=== PATIENT | female | born 1985 | race Two or more races ===

== ENCOUNTER 2018-11-18 15:03 | Emergency (ER) | payer OTHER ==
[~2018-11-18] VITALS: Ht 160 cm; Wt 59.0 kg
[2018-11-18] MEDS ORDERED: PRENATAL + DHA1 EACH PO (15:54)
[2018-11-18] MEDS ORDERED: DIALYVITE 800-1 EACH PO (15:54)
== END 2018-11-18 19:51 | disposition home or self-care (01) ==
LOC: ER 15:03
DX: O20.0 Threatened abortion (principal)

== ENCOUNTER 2018-12-19 20:22 | Inpatient (IN) | payer OTHER ==
[~2018-12-19] VITALS: Ht 160 cm; Wt 59.0 kg
== END 2018-12-30 13:39 | disposition home or self-care (01) | DRG 832 ==
LOC: LDR 20:22 → OB/GYN 12-20 18:34
PROVIDERS: ADMIT Obstetrics & Gynecology
PROC: 4A1HXCZ Monitoring of Products of Conception, Cardiac Rate, External Approach (ICD-10-PCS; 2018-12-19)
PROC: BY4DZZZ Ultrasonography of Second Trimester, Multiple Gestation (ICD-10-PCS; principal; 2018-12-20)
PROC: BW40ZZZ Ultrasonography of Abdomen (ICD-10-PCS; 2018-12-24)
PROC: BU46ZZZ Ultrasonography of Uterus (ICD-10-PCS; 2018-12-24)
DX: O34.32 Maternal care for cervical incompetence, second trimester (principal); O47.02 False labor before 37 completed weeks of gestation, second trimester; O30.002 Twin pregnancy, unspecified number of placenta and unspecified number of amniotic sacs, second trimester; Z34.82 Encounter for supervision of other normal pregnancy, second trimester

== ENCOUNTER → 2018-12-19 | Day surgery (SDC) | payer OTHER ==
[~2018-12-19] MED LIST: DIALYVITE 800-1 EACH PO; PRENATAL + DHA1 EACH PO; PROCARD PO; PROGESTERONE200 MG PO
== END | disposition home or self-care (01) ==
LOC: CIR.AMB 09:40
DX: O34.32 Maternal care for cervical incompetence, second trimester (principal); O30.042 Twin pregnancy, dichorionic/diamniotic, second trimester; Z3A.16 16 weeks gestation of pregnancy

== ENCOUNTER 2019-01-14 14:15 | Outpatient (CLI) | payer OTHER | END 2019-01-14 15:48 | disposition HB | LOC: NST 14:15 | DX: Z34.82 Encounter for supervision of other normal pregnancy, second trimester (principal) ==

== ENCOUNTER 2019-01-30 09:19 | Outpatient (CLI) | payer OTHER | END 2019-01-30 12:10 | disposition home or self-care (01) | LOC: NST 09:19 | DX: Z34.82 Encounter for supervision of other normal pregnancy, second trimester (principal) ==

== ENCOUNTER 2019-02-10 14:07 | Inpatient (IN) | payer OTHER ==
[~2019-02-10] VITALS: Ht 160 cm; Wt 60.3 kg
[~2019-02-10 14:07] MED LIST changes: -PROGESTERONE200 MG PO; +PROGESTERONE200 MG VAG
[2019-02-10] MEDS ORDERED: NIFE60TA3 PO (14:47)
[2019-02-21] MEDS ORDERED: NIFEDIPINE ER60 MG PO (08:10)
[2019-02-21] MEDS ORDERED: AMOX-CLAV 500-1 EACH PO (08:10)
== END 2019-02-21 13:35 | DRG 833 ==
LOC: LDR 14:07 → OB/GYN 02-13 13:17
PROVIDERS: ADMIT Obstetrics & Gynecology Maternal & Fetal Medicine
PROC: 4A0HXFZ Measurement of Products of Conception, Cardiac Rhythm, External Approach (ICD-10-PCS; principal; 2019-02-10)
PROC: BU4CZZZ Ultrasonography of Uterus and Ovaries (ICD-10-PCS; 2019-02-17)
PROC: BY4DZZZ Ultrasonography of Second Trimester, Multiple Gestation (ICD-10-PCS; 2019-02-18)
DX: O34.32 Maternal care for cervical incompetence, second trimester (principal)

== ENCOUNTER 2019-02-26 17:01 | Inpatient (IN) | payer OTHER ==
[~2019-02-26] VITALS: Ht 160 cm; Wt 60.8 kg
[~2019-02-26 17:01] MED LIST changes: +AMOX-CLAV 500-1 EACH PO; +NIFE60TA3 PO; +NIFEDIPINE ER60 MG PO
[2019-02-26] MEDS ORDERED: LAXATIVE SUPPO1 EACH (19:06)
[2019-02-26] MEDS ORDERED: COLACE100 MG PO (19:07)
== END 2019-04-12 15:20 | disposition home or self-care (01) | DRG 831 ==
LOC: SURG-SUITE 17:01 → LDR 17:01 → SURG-SUITE 03-02 11:02
PROVIDERS: ADMIT Obstetrics & Gynecology Maternal & Fetal Medicine
PROC: 4A1HXCZ Monitoring of Products of Conception, Cardiac Rate, External Approach (ICD-10-PCS; principal; 2019-02-26)
PROC: BY4DZZZ Ultrasonography of Second Trimester, Multiple Gestation (ICD-10-PCS; 2019-03-02)
PROC: BY47ZZZ Ultrasonography of Fetal Umbilical Cord (ICD-10-PCS; 2019-03-27)
PROC: BY4DZZZ Ultrasonography of Second Trimester, Multiple Gestation (ICD-10-PCS; 2019-03-27)
DX: O47.03 False labor before 37 completed weeks of gestation, third trimester (principal); O34.32 Maternal care for cervical incompetence, second trimester; O30.002 Twin pregnancy, unspecified number of placenta and unspecified number of amniotic sacs, second trimester; O65.5 Obstructed labor due to abnormality of maternal pelvic organs; Z3A.25 25 weeks gestation of pregnancy

== ENCOUNTER 2019-04-15 15:09 | Outpatient (CLI) | payer OTHER ==
[~2019-04-15 15:09] MED LIST changes: +COLACE100 MG PO; +LAXATIVE SUPPO1 EACH
== END 2019-04-15 17:59 | disposition home or self-care (01) ==
LOC: NST 15:09
DX: Z34.83 Encounter for supervision of other normal pregnancy, third trimester (principal)

== ENCOUNTER 2019-04-18 12:20 | Outpatient (CLI) | payer OTHER | END 2019-04-18 13:18 | disposition home or self-care (01) | LOC: NST 12:20 | DX: Z34.83 Encounter for supervision of other normal pregnancy, third trimester (principal) ==

== ENCOUNTER 2019-04-22 12:51 | Outpatient (CLI) | payer OTHER | END 2019-04-22 13:36 | disposition home or self-care (01) | LOC: NST 12:51 | DX: Z34.83 Encounter for supervision of other normal pregnancy, third trimester (principal) ==

== ENCOUNTER 2019-04-25 11:40 | Outpatient (CLI) | payer OTHER | END 2019-04-25 12:37 | disposition home or self-care (01) | LOC: NST 11:40 | DX: Z34.83 Encounter for supervision of other normal pregnancy, third trimester (principal) ==

== ENCOUNTER 2019-04-29 14:28 | Outpatient (CLI) | payer OTHER | END 2019-04-29 16:53 | disposition home or self-care (01) | LOC: NST 14:28 | DX: Z34.83 Encounter for supervision of other normal pregnancy, third trimester (principal) ==

== ENCOUNTER 2019-05-02 12:54 | Outpatient (CLI) | payer OTHER | END 2019-05-02 13:44 | disposition home or self-care (01) | LOC: NST 12:54 | DX: Z34.83 Encounter for supervision of other normal pregnancy, third trimester (principal) ==

== ENCOUNTER 2019-05-06 12:48 | Outpatient (CLI) | payer OTHER ==
[2019-05-06] MEDS ORDERED: FOLIC ACID1 MG PO (16:13)
[2019-05-06] MEDS ORDERED: OBSTETRIX EC C1 EACH PO (16:13)
== END 2019-05-06 13:12 | disposition home or self-care (01) ==
LOC: NST 12:48
DX: Z34.83 Encounter for supervision of other normal pregnancy, third trimester (principal)

== ENCOUNTER 2019-05-06 15:15 | Inpatient (IN) | payer OTHER ==
[~2019-05-06] VITALS: Ht 160 cm; Wt 1.8 kg
[2019-05-06] MEDS ORDERED: FOLIC ACID1 MG PO (16:13)
[2019-05-06] MEDS ORDERED: OBSTETRIX EC C1 EACH PO (16:13)
== END 2019-05-11 18:04 | disposition home or self-care (01) | DRG 786 ==
LOC: O/R 15:15 → OB/GYN 05-08 06:56 → O/R 05-08 06:56 → OB/GYN 05-08 11:14 → O/R 05-08 15:15 → OB/GYN 05-11 18:04
PROVIDERS: ADMIT Obstetrics & Gynecology Maternal & Fetal Medicine
PROC: 0UCC0ZZ Extirpation of Matter from Cervix, Open Approach (ICD-10-PCS; 2019-05-08)
PROC: 4A1HXCZ Monitoring of Products of Conception, Cardiac Rate, External Approach (ICD-10-PCS; 2019-05-08)
PROC: 10D00Z1 Extraction of Products of Conception, Low, Open Approach (ICD-10-PCS; principal; 2019-05-08 07:00)
DX: O82 Encounter for cesarean delivery without indication (principal); O34.33 Maternal care for cervical incompetence, third trimester; O60.12X0 Preterm labor second trimester with preterm delivery second trimester, not applicable or unspecified; O65.5 Obstructed labor due to abnormality of maternal pelvic organs; O32.1XX0 Maternal care for breech presentation, not applicable or unspecified; O30.043 Twin pregnancy, dichorionic/diamniotic, third trimester; Z3A.35 35 weeks gestation of pregnancy; Z37.2 Twins, both liveborn